=== PATIENT | female | born 1965 | race Caucasian/White ===

== ENCOUNTER 2016-12-27 08:00 | Outpatient (CLI) | payer BC | END 2016-12-27 23:59 | disposition home or self-care (01) | DX: R30.0 Dysuria (principal) ==

== ENCOUNTER 2017-12-22 14:28 | Outpatient (CLI) | payer BC ==
[~2017-12-22 14:28] MED LIST: GADOBUTROL 10 MMOL/10 ML VIAL ONE
[2017-12-22] MEDS ORDERED: GADOBUTROL 10 MMOL/10 ML VIAL IVP ONE (15:41)
--- NOTE | 2017-12-23 06:30 | MRI Report ---
EXAM: MRI BRAIN WITHOUT AND WITH CONTRAST EXAM DATE: 12/22/2017 03:49 PM. CLINICAL HISTORY: History of meningioma surgery, evaluate for recurrence. Dizziness. COMPARISON: Outside MR brain without and with contrast from 11/04/2012. TECHNIQUE: Multiplanar, multisequence T1-weighted and fluid-sensitive MR sequences of the brain were performed. Sequences optimized for IAC evaluation. Other: None. IV Contrast: Yes. FINDINGS: Right frontal craniotomy and cranioplasty procedure, as before. Region of encephalomalacia and surrounding gliosis involving the left frontal pole, the appearance is unchanged. There is a small, thin area of enhancement seen in the floor of the left frontal fossa in the region of surgery. This is at the medial aspect of the region of resection. This measures roughly 1 mm in th ickness by 5 mm. Similar findings present on the prior study. Posterior fossa structures including the brainstem, CP angle cisterns, seventh and eighth cranial ner ves, inner ears and petrous bones are unremarkable. No space-occupying lesion, hemorrhage, extracerebral fluid collection, hydrocephalus or evidence of i nfarct. Expected flow voids are identified. Intracranial veins are patent and unremarkable. IMPRESSION: There is a small, thin area of enhancement seen in the floor of the left frontal fossa in the region of surgery. This is at the medial aspect of the region of resection, measuring roughly 1 mm in thickn ess by 5 mm. Similar findings present on the prior study. Findings could represent minimal residual t umor or postoperative change. [facility] Referring Provider Line: [phone] SITE ID: [id number]
== END 2017-12-22 14:29 | disposition home or self-care (01) ==
LOC: DI 14:28
PROVIDERS: ATTEND Family Medicine
DX: R42 Dizziness and giddiness (principal)
CPT/HCPCS: 70553; A9585

== ENCOUNTER 2018-08-17 11:28 | Outpatient (CLI) | payer BC | END 2018-08-17 11:29 | disposition home or self-care (01) | LOC: LAB.F 11:28 | PROVIDERS: ATTEND Nurse Practitioner Family | DX: Z01.84 Encounter for antibody response examination (principal); E78.1 Pure hyperglyceridemia; F32.9 Major depressive disorder, single episode, unspecified | CPT/HCPCS: 36415; 81599; 86735; 86762; 86765; 86774; 86787 ==

== ENCOUNTER 2018-09-14 08:09 | Outpatient (CLI) | payer BC ==
[2018-09-14 13:35] LABS: ALBUMIN 3.9 g/dL (3.2-5.5); ALBUMIN/GLOBULIN RATIO 1.3 (1.0-2.2); ALKALINE PHOSPHATASE 53 IU/L (42-121); ALT ALANINE AMINOTRANSFERASE 16 IU/L (10-60); AST ASPARTATE AMINOTRANSFERASE 18 IU/L (10-42); BILIRUBIN,TOTAL 0.8 mg/dL (0.2-1.0); BUN - BLOOD UREA NITROGEN 21 mg/dL (6-20); CARBON DIOXIDE - CO2 29 mmol/L (21-32); CHLORIDE 101 mmol/L (101-111); CHOL/HDL RATIO 3.8 (<4.4); CHOLESTEROL 218 mg/dL; GFR - MDRD 58 (>89); GLUCOSE 103 mg/dL (70-100); HDL CHOLESTEROL 58 mg/dL; LDL CHOLESTEROL,CALCULATED 113 mg/dL; LDL/HDL RATIO 1.9 (<4.4); SODIUM 137 mmol/L (135-145); TOTAL PROTEIN 6.8 g/dL (6.7-8.2); VLDL CHOLESTEROL 47 mg/dL
== END 2018-09-14 08:10 | disposition home or self-care (01) ==
LOC: LAB.S 08:09
PROVIDERS: ATTEND Nurse Practitioner Family
DX: E78.1 Pure hyperglyceridemia (principal); F32.9 Major depressive disorder, single episode, unspecified
CPT/HCPCS: 36415; 80053; 80061; 83721; 84443

== ENCOUNTER 2019-01-01 08:55 | Outpatient (CLI) | payer BC ==
--- NOTE | 2019-01-01 10:01 | Mammography Report ---
Reason: Annual Screening Procedure Date: 01/01/2019 Accession Number: [id number] / [id number] Procedure: [facility] - Screening Mammo w/[facility]ar CPT Code: FULL RESULT: EXAM: Screening Mammo w/Bandar DATE: 01/01/2019 9:35 AM CLINICAL HISTORY: Screening encounter. History of late childbearing. TECHNIQUE: Bilateral CC and MLO views were obtained. COMPARISON: 09/19/2016 through 09/14/2009. FINDINGS: The breasts demonstrate scattered fibroglandular densities bilaterally. A well-circumscribed nodule in the right breast is stable, typically benign. No suspicious masses, clustered microcalcifications, or regions of architectural distortion are identified. IMPRESSION: Benign findings RECOMMENDATION: Routine annual screening unless otherwise clinically indicated. BIRADS CATEGORY 2: Benign findings STANDARD QUALIFYING STATEMENTS: 1. This examination was not reviewed with the aid of Computer-Aided Detection (CAD). 2. A negative or benign imaging report should not delay biopsy if clinically suspicious findings are present. Consider surgical consultation if warrented. More than 5% of cancers are not identified by imaging. 3. Dense breasts may obscure an underlying neoplasm. 4. This examination was reviewed with the aid of 3D breast imaging (tomosynthesis).
== END 2019-01-01 08:56 | disposition home or self-care (01) ==
LOC: DI 08:55
PROVIDERS: ATTEND Nurse Practitioner Family
DX: Z12.31 Encounter for screening mammogram for malignant neoplasm of breast (principal)
CPT/HCPCS: 77063; 77067

== ENCOUNTER 2019-09-28 08:31 | Outpatient (CLI) | payer BC ==
[2019-09-28 17:10] LABS: BASOPHILS # (AUTO) 0.1 10^3/uL (0.0-0.1); EOSINOPHILS # (AUTO) 0.2 10^3/uL (0.0-0.7); EOSINOPHILS % (AUTO) 3.1 %; HGB - HEMOGLOBIN 13.7 g/dL (12.0-16.0); LYMPHOCYTES # (AUTO) 1.3 10^3/uL (1.5-3.5); LYMPHOCYTES % (AUTO) 27.1 %; MEAN CORPUSCULAR HEMOGLOBIN 29.5 pg (27.0-31.0); MEAN CORPUSCULAR HGB CONC 32.1 g/dL (32.0-36.0); MEAN PLATELET VOLUME 10.6 fL (7.9-10.8); MONOCYTES # (AUTO) 0.4 10^3/uL (0.0-1.0); MONOCYTES % (AUTO) 7.1 %; NEUTROPHILS % (AUTO) 61.5 %; PLT - PLATELET COUNT 201 10^3/uL (130-450); RED BLOOD COUNT 4.64 10^6/uL (4.20-5.40); RED CELL DISTRIBUTION WIDTH 13.1 % (12.0-15.0); WHITE BLOOD COUNT 4.9 x10^3/uL (4.8-10.8)
[2019-09-28 17:29] LABS: HB2 TOTAL 13.8 g/dL; HEMOGLOBIN A1C 0.45 g/dL; HEMOGLOBIN A1C % 5.1 % (4.6-6.2)
[2019-09-28 17:35] LABS: ALBUMIN/GLOBULIN RATIO 1.4 (1.0-2.2); ALKALINE PHOSPHATASE 54 IU/L (42-121); ALT ALANINE AMINOTRANSFERASE 17 IU/L (10-60); AST ASPARTATE AMINOTRANSFERASE 20 IU/L (10-42); BILIRUBIN,TOTAL 0.8 mg/dL (0.2-1.0); BUN - BLOOD UREA NITROGEN 21 mg/dL (6-20); CALCIUM 8.7 mg/dL (8.5-10.3); CARBON DIOXIDE - CO2 28 mmol/L (21-32); CHLORIDE 101 mmol/L (101-111); CHOL/HDL RATIO 3.8 (<4.4); CHOLESTEROL 220 mg/dL; CREATININE 0.9 mg/dL (0.4-1.0); GFR - MDRD 65 (>89); GLUCOSE 105 mg/dL (70-100); HDL CHOLESTEROL 58 mg/dL; LDL CHOLESTEROL,CALCULATED 105 mg/dL; LDL/HDL RATIO 1.8 (<4.4); SODIUM 137 mmol/L (135-145); TOTAL PROTEIN 6.9 g/dL (6.7-8.2); VLDL CHOLESTEROL 57 mg/dL
== END 2019-09-28 08:32 | disposition home or self-care (01) ==
LOC: LAB.S 08:31
PROVIDERS: ATTEND Registered Nurse
DX: F51.04 Psychophysiologic insomnia (principal); F32.9 Major depressive disorder, single episode, unspecified; F41.9 Anxiety disorder, unspecified; N28.9 Disorder of kidney and ureter, unspecified
CPT/HCPCS: 36415; 80053; 80061; 83036; 83721; 84443; 85025

== ENCOUNTER 2020-06-20 08:54 | Outpatient (CLI) | payer BC ==
[2020-06-20 14:50] LABS: BASOPHILS # (AUTO) 0.1 10^3/uL (0.0-0.1); BASOPHILS % (AUTO) 0.8 %; EOSINOPHILS # (AUTO) 0.2 10^3/uL (0.0-0.7); EOSINOPHILS % (AUTO) 2.7 %; HGB - HEMOGLOBIN 13.7 g/dL (12.0-16.0); LYMPHOCYTES # (AUTO) 1.7 10^3/uL (1.5-3.5); LYMPHOCYTES % (AUTO) 27.9 %; MEAN CORPUSCULAR HEMOGLOBIN 29.5 pg (27.0-31.0); MEAN CORPUSCULAR HGB CONC 32.2 g/dL (32.0-36.0); MEAN CORPUSCULAR VOLUME 91.4 fL (81.0-99.0); MEAN PLATELET VOLUME 10.9 fL (7.9-10.8); MONOCYTES # (AUTO) 0.5 10^3/uL (0.0-1.0); NEUTROPHILS # (AUTO) 3.6 10^3/uL (1.5-6.6); NEUTROPHILS % (AUTO) 60.4 %; PLT - PLATELET COUNT 204 10^3/uL (130-450); RED BLOOD COUNT 4.65 10^6/uL (4.20-5.40)
[2020-06-20 15:13] LABS: ALBUMIN/GLOBULIN RATIO 1.5 (1.0-2.2); ALKALINE PHOSPHATASE 55 IU/L (42-121); ALT ALANINE AMINOTRANSFERASE 18 IU/L (10-60); AST ASPARTATE AMINOTRANSFERASE 19 IU/L (10-42); BILIRUBIN,TOTAL 0.8 mg/dL (0.2-1.0); BUN - BLOOD UREA NITROGEN 20 mg/dL (6-20); CALCIUM 8.9 mg/dL (8.5-10.3); CARBON DIOXIDE - CO2 26 mmol/L (21-32); CHLORIDE 101 mmol/L (101-111); CHOL/HDL RATIO 3.4 (<4.4); CHOLESTEROL 227 mg/dL; CREATININE 0.9 mg/dL (0.4-1.0); GLUCOSE 103 mg/dL (70-100); HDL CHOLESTEROL 67 mg/dL; LDL CHOLESTEROL,CALCULATED 124 mg/dL; LDL/HDL RATIO 1.9 (<4.4); SODIUM 135 mmol/L (135-145); TOTAL PROTEIN 6.6 g/dL (6.7-8.2); VLDL CHOLESTEROL 36 mg/dL
== END 2020-06-20 08:55 | disposition home or self-care (01) ==
LOC: LAB.S 08:54
PROVIDERS: ATTEND Family Medicine
DX: Z00.00 Encounter for general adult medical examination without abnormal findings (principal); N28.9 Disorder of kidney and ureter, unspecified; F51.04 Psychophysiologic insomnia
CPT/HCPCS: 36415; 80053; 80061; 83721; 84443; 85025

== ENCOUNTER 2020-07-27 15:36 | Outpatient (CLI) | payer BC ==
--- NOTE | 2020-07-31 13:39 | Mammography Report ---
BILATERAL DIGITAL SCREENING MAMMOGRAM 3D/2D: 07/27/2020 CLINICAL: Routine screening. Comparison is made to exams dated: 01/01/2019 mammogram - [facility], 09/19/2016, 12/12/2014. There are scattered fibroglandular elements in both breasts. No significant masses, calcifications, or other findings are seen in either breast. There has been no significant interval change. IMPRESSION: NEGATIVE There is no mammographic evidence of malignancy. A 1 year screening mammogram is recommended. This exam was interpreted at Station ID: [id number]. NOTE: For mammograms, a report in lay terms will be sent to the patient. Approximately 15% of breast malignancies will not be visualized mammographically. In the management of a palpable breast mass, a negative mammogram must not discourage biopsy of a clinically suspicious lesion. Electronically Signed By: Abdi Acosta M.D. slc/:07/28/2020 10:20:21 ACR BI-RADS Category 1: Negative 3341F PARENCHYMAL PATTERN: (A) - The breast(s) demonstrate(s) scattered fibroglandular densities. BI-RADS CATEGORY: (1) - 1 RECOMMENDATION: (ANNUAL) - Recommend routine annual screening mammography. [id number] 1 year screening LATERALITY: (B)
== END 2020-07-27 15:37 | disposition home or self-care (01) ==
LOC: DI 15:36
PROVIDERS: ATTEND Family Medicine
DX: Z12.31 Encounter for screening mammogram for malignant neoplasm of breast (principal)
CPT/HCPCS: 77063; 77067

== ENCOUNTER 2022-10-28 18:26 | Emergency (ER) | payer BC ==
[2022-10-28 19:00] VITALS: BP 126/69
--- NOTE | 2022-10-28 21:40 | ED Physician Documentation ---
History of Present Illness - Stated complaint Stated Complaint: R THUMB LAC - Chief complaint Chief Complaint: Laceration - History obtained from History obtained from: Patient - History of Present Illness Timing: Today Pain level max: 3 Pain level now: 1 - Additonal information Additional information: Patient is a 57-year-old female who presents to the emergency department after a laceration with a mandolin to the right thumb that she has been unable to get to stop bleeding at home. Worse with movement. Better with pressure. Not anticoagulated. Last tetanus shot was about 5 years ago. Review of Systems Constitutional: denies: Fever, Chills Skin: denies: Rash Neurologic: denies: Headache PD PAST MEDICAL HISTORY - Past Medical History Past Medical History: No Cardiovascular: None Respiratory: None Endocrine/Autoimmune: None HEENT: None Derm: None - Present Medications Home Medications: Ambulatory Orders Medication Instructions Recorded Confirmed Cetirizine HCl [Zyrtec] 10 mg PO PRN 07/13/13 07/13/13 Citalopram Hydrobromide [Celexa] 10 mg PO 07/13/13 07/13/13 Eszopiclone [Lunesta] 3 mg PO PRN 07/13/13 07/13/13 - Allergies Allergies/Adverse Reactions: Allergies Allergy/AdvReac Type Severity Reaction Status Date / Time iodine Allergy Intermediate Respiratory Verified 10/28/22 19:00 hydromorphone HCl * Allergy Mild Itching Verified 10/28/22 19:00 [From Dilaudid] influenza virus vaccine, Allergy Mild Nausea Verified 10/28/22 19:00 specific [Influenza Virus Vacc,Specific] levofloxacin [From Levaquin] Allergy Mild Rash Verified 10/28/22 19:00 meropenem Allergy Mild Rash Verified 10/28/22 19:00 Penicillins Allergy Mild Rash Verified 10/28/22 19:00 Sulfa (Sulfonamide Allergy Mild Rash Verified 10/28/22 19:00 Antibiotics) Cephalosporins Allergy Rash Verified 10/28/22 19:00 - Social History Smoking Status: Never smoker PD ED PE NORMAL - Vitals Vital signs reviewed: Yes - General General: Alert and oriented X 3, No acute distress - Derm Derm: Warm and dry - Neuro Neuro: Alert and oriented X 3 PD ED PE EXPANDED - Extremities SIERRA UE/Hands Visual: 1 - laceration (skin avulsion 0.2cm) Results - Vitals Vitals: Vital Signs - 24 hr 10/28/22 18:57 Temperature 36.8 C Heart Rate 71 Respiratory 16 Rate Blood Pressure 126/69 O2 Saturation 98 Oxygen O2 Source Room air Procedures - General procedure General procedure: 0.2 cm skin avulsion to the right thumb. It is approximately 0.5 cm in length. Neurovascular intact. A finger tourniquet was applied. Bleeding controlled. Dermabond was applied to the area. Excellent hemostasis achieved. Tourniquet removed. Neurovascular intact. Dressing applied. No complications PD Medical Decision Making - ED course Complexity details: re-evaluated patient, considered differential, d/w patient, d/w family ED course: 57-year-old female with a small skin avulsion from a mandolin. Tetanus is up-to-date. Laceration repaired with Dermabond and finger tourniquet. Excellent hemostasis. Neurovascularly intact. Patient counseled regarding signs and symptoms for which I believe and urgent re-evaluation would be necessary. Patient with good understanding of and agreement to plan and is comfortable going home at this time This document was made in part using voice recognition software. While efforts are made to proofread this document, sound alike and grammatical errors may occu r. Departure - Departure Disposition: 01 Home, Self Care Clinical Impression: Skin avulsion Condition: Good Instructions: ED Avulsion Dermal Follow-Up: Laura Flores ARNP [Primary Care Provider] - As Needed Comments: Keep the wound clean. The glue will dissolve on its own. Do not apply ointment to the glue as this may dissolve the glue. This should heal within 2 to 3 days. Return if you worsen Discharge Date/Time: 10/28/22 21:53
== END 2022-10-28 21:53 | disposition home or self-care (01) ==
LOC: ED 18:26
DX: S61.011A Laceration without foreign body of right thumb without damage to nail, initial encounter (principal); W27.4XXA Contact with kitchen utensil, initial encounter
CPT/HCPCS: 99281; 99282

== ENCOUNTER 2023-02-05 08:41 | Outpatient (CLI) | payer BC ==
--- NOTE | 2023-02-05 10:56 | XRAY Report ---
PROCEDURE: Chest 2 View X-Ray INDICATIONS: CHEST PAIN,LEFT TECHNIQUE: 2 views of the chest were acquired. COMPARISON: None. FINDINGS: Surgical changes and devices: None. Lungs and pleura: No pleural effusions or pneumothorax. Lungs are clear. Mediastinum: Mediastinal contours appear normal. Heart size is normal. Bones and chest wall: No suspicious bony lesions. Overlying soft tissues appear unremarkable. IMPRESSION: No acute cardiopulmonary process. Reviewed by: Kwame Garcia on 02/05/2023 10:55 AM PDT Approved by: Kwame Garcia on 02/05/2023 10:55 AM PDT Station ID: [id number]
[2023-02-05 14:18] LABS: BASOPHILS # (AUTO) 0.1 10^3/uL (0.0-0.1); BASOPHILS % (AUTO) 1.2 %; EOSINOPHILS # (AUTO) 0.2 10^3/uL (0.0-0.7); EOSINOPHILS % (AUTO) 3.6 %; HGB - HEMOGLOBIN 14.2 g/dL (12.0-16.0); LYMPHOCYTES # (AUTO) 1.6 10^3/uL (1.5-3.5); LYMPHOCYTES % (AUTO) 30.5 %; MEAN CORPUSCULAR HEMOGLOBIN 30.1 pg (27.0-31.0); MEAN CORPUSCULAR VOLUME 91.1 fL (81.0-99.0); MEAN PLATELET VOLUME 11.5 fL (7.9-10.8); MONOCYTES # (AUTO) 0.4 10^3/uL (0.0-1.0); MONOCYTES % (AUTO) 8.1 %; NEUTROPHILS # (AUTO) 2.9 10^3/uL (1.5-6.6); NEUTROPHILS % (AUTO) 56.4 %; PLT - PLATELET COUNT 214 10^3/uL (130-450); RED BLOOD COUNT 4.72 10^6/uL (4.20-5.40); RED CELL DISTRIBUTION WIDTH 12.7 % (12.0-15.0); WHITE BLOOD COUNT 5.2 x10^3/uL (4.8-10.8)
[2023-02-05 15:35] LABS: ALBUMIN/GLOBULIN RATIO 1.5 (1.0-2.2); ALKALINE PHOSPHATASE 45 IU/L (42-121); ALT ALANINE AMINOTRANSFERASE 18 IU/L (10-60); AST ASPARTATE AMINOTRANSFERASE 20 IU/L (10-42); BILIRUBIN,TOTAL 0.8 mg/dL (0.2-1.0); BUN - BLOOD UREA NITROGEN 26 mg/dL (6-20); CARBON DIOXIDE - CO2 27 mmol/L (21-32); CHLORIDE 102 mmol/L (101-111); CHOL/HDL RATIO 3.6 (<4.4); CHOLESTEROL 192 mg/dL; CREATININE 1.1 mg/dL (0.4-1.0); GFR - MDRD 51 (>89); GLUCOSE 101 mg/dL (70-100); HDL CHOLESTEROL 54 mg/dL; LDL CHOLESTEROL,CALCULATED 118 mg/dL; LDL/HDL RATIO 2.2 (<4.4); POTASSIUM 4.2 mmol/L (3.5-5.0); SODIUM 134 mmol/L (135-145); THYROID STIMULATING HORMONE 2.05 uIU/mL (0.34-5.60); TOTAL PROTEIN 6.6 g/dL (6.7-8.2); TRIGLYCERIDES 102 mg/dL; VLDL CHOLESTEROL 20 mg/dL
[2023-02-06 08:10] LABS: HCV AB Non Reactive (Non Reactive)
== END 2023-02-05 08:42 | disposition home or self-care (01) ==
LOC: DI.S 08:41
PROVIDERS: ATTEND Registered Nurse
DX: R07.89 Other chest pain (principal); Z00.00 Encounter for general adult medical examination without abnormal findings; Z79.899 Other long term (current) drug therapy; Z13.220 Encounter for screening for lipoid disorders; Z13.29 Encounter for screening for other suspected endocrine disorder
CPT/HCPCS: 36415; 80053; 80061; 83721; 84443; 85025; 86803

== ENCOUNTER 2024-07-19 16:45 | Outpatient (CLI) | payer BC ==
[2024-07-19 17:23] LABS: ALBUMIN 4.3 g/dL (3.2-5.5); ALBUMIN/GLOBULIN RATIO 1.7 (1.0-2.2); BILIRUBIN,TOTAL 0.5 mg/dL (0.2-1.0); CALCIUM 9.6 mg/dL (8.5-10.3); POTASSIUM 3.9 mmol/L (3.5-4.5); TOTAL PROTEIN 6.8 g/dL (6.4-8.9)
== END 2024-07-19 16:46 | disposition home or self-care (01) ==
LOC: LAB 16:45
PROVIDERS: ATTEND Obstetrics & Gynecology
DX: N95.1 Menopausal and female climacteric states (principal)
CPT/HCPCS: 36415; 80053